=== PATIENT | male | born 1955 | race Caucasian/White ===

== ENCOUNTER 2022-06-15 07:42 | Outpatient (CLI) | payer MEDICARE, BC, SELFPAY | END 2022-06-15 07:43 | disposition home or self-care (01) | LOC: NFLDREF 06-18 10:47 | PROVIDERS: PCP Internal Medicine; Referring Provider Internal Medicine; Visit Provider Internal Medicine | DX: Z00.00 Encounter for general adult medical examination without abnormal findings (principal); Z12.5 Encounter for screening for malignant neoplasm of prostate; Z13.6 Encounter for screening for cardiovascular disorders; C61 Malignant neoplasm of prostate; R91.1 Solitary pulmonary nodule; L98.9 Disorder of the skin and subcutaneous tissue, unspecified | CPT/HCPCS: 80053; 80061; 84153 ==

== ENCOUNTER 2022-06-30 15:47 | Outpatient (CLI) | payer MEDICARE, BC, SELFPAY ==
--- NOTE | 2022-06-30 16:00 | CRLHL7_ITS ---
For Patients: As a result of the Century Cures Act, medical imaging exams and procedure reports are released immediately into your electronic medical record. You may view this report before your referring provider. If you have questions, please contact your health care provider. Indication: Lung nodule Technique: Noncontrast CT test, Hines protocol Please note that all CT scans at this facility use dose modulation, iterative reconstruction, and/or weight-based dosing when appropriate to reduce radiation dose to as low as reasonably achievable. Comparison: 06/05/2021 Findings: Similar morphology of focal ground-glass within the posterior aspect of the right lower lobe. This measures 3 cm on today`s exam. Mild scarring is present within the inferior right middle lobe and lingula. No pleural effusion. No pneumothorax. Underlying emphysema. Similar subcentimeter intrathoracic lymph nodes. No fracture. Mild bilateral gynecomastia. The upper abdomen is unremarkable. Degenerative changes. No fracture. Impression: 3 cm focal ground-glass opacity within the right lower lobe is possibly more dense and slightly more prominent compared to the prior study. Please note that all CT scans at this facility use dose modulation, iterative reconstruction, and/or weight-based dosing when appropriate to reduce radiation dose to as low as reasonably achievable. Dictated by Ashwin Streeter MD @ 07/01/2022 7:16:51 AM (Electronically Signed)
== END 2022-06-30 15:48 | disposition home or self-care (01) ==
LOC: CT 15:47
PROVIDERS: PCP Internal Medicine; Visit Provider Internal Medicine
DX: R91.1 Solitary pulmonary nodule (principal)
CPT/HCPCS: 71250